=== PATIENT | female | born 1995 | race Hispanic/Latino ===

== ENCOUNTER 2021-01-17 10:32 | Emergency (ER) | payer BC ==
[2021-01-17 11:36] LABS: Urine Blood 3+ (Negative); Urine Glucose Negative (Negative); Urine Protein 2+ (Negative); Urine Specific Gravity 1.015 (1.005-1.030); Urine pH >=9.0 (5.0-7.0)
[2021-01-17 11:37] LABS: Absolute Lymphocytes (CBC) 1.6 K/uL (0.7-4.9); Basophils % 0.4 % (0-1.3); Hematocrit 45.1 % (36.0-45.0); Lymphocytes % 19.3 % (15.3-44.8); RBC Red Blood Cell Count 5.12 M/uL (3.86-4.86)
[2021-01-17 11:52] LABS: BUN Blood Urea Nitrogen 9 mg/dL (7-18); Bicarbonate 25 mmol/L (21-32); Glucose Level 93 mg/dL (74-106); Potassium 4.2 mmol/L (3.5-5.1); Sodium Level 139 mmol/L (136-145)
[2021-01-17] MEDS ORDERED: ONDANSETRON 4 MG/2 ML VIAL ONE (12:19)
[2021-01-17] MEDS ORDERED: MORPHINE 2 MG/ML SYR ONE (12:19)
--- NOTE | 2021-01-17 12:34 | RAD REPORT ---
EXAM DESCRIPTION: CT - Abdomen Pelvis W Contrast - 01/17/2021 12:19 pm CLINICAL HISTORY: Abdominal pain COMPARISON: none. TECHNIQUE: Computed axial tomography of the abdomen pelvis was obtained. 100 cc Isovue-300 was admin istered intravenously. Oral contrast was not requested which limits evaluation of bowel. All CT scans are performed using dose optimization technique as appropriate and may include automated exposure control or mA/KV adjustment according to patient size. FINDINGS: The liver, spleen, pancreas, adrenal and kidneys appear unremarkable. There is no evidence of diverticulitis. Normal appendix. Small umbilical hernia 2 centimeter irregularly-shaped left ovarian cyst Small amount of ill-defined fluid surrounds uterus. Endometrial stripe 11 millimeters IMPRESSION: 2 centimeter irregularly-shaped left ovarian cyst probably has recently ruptured . Small amount of ill-defined fluid surrounds the uterus. The patient is status post section a pproximately 5 weeks ago. No abscess visualized
[2021-01-17 13:32] LABS: Urine Specific Gravity/Preg 1.015 (1.005-1.030)
--- NOTE | 2021-01-17 13:36 | ER ---
Nurse's Notes [facility] Name: Raquel Claros Age: 25 yrs Sex: Female : 1995 Arrival Date: 01/17/2021 Time: 10:34 Bed 26 Private MD: Diagnosis: Other abnormal uterine and vaginal bleeding;Other ovarian cysts Presentation: 01/17 10:46 Chief complaint: Patient states: "I had a C section on December 13 and today I am bleeding jd3 a lot.". Coronavirus screen: At this time, the client does not indicate any symptoms associated with coronavirus-19. Ebola Screen: Patient negative for fever greater than or equal to 101.5 degrees Fahrenheit, and additional compatible Ebola Virus Disease symptoms. Initial Sepsis Screen: Does the patient meet any 2 criteria? No. Patient's initial sepsis screen is negative. Does the patient have a suspected source of infection? No. Patient's initial sepsis screen is negative. Risk Assessment: Do you want to hurt yourself or someone else? Patient reports no desire to harm self or others. Onset of symptoms was January 16, 2021. 10:46 Method Of Arrival: Wheelchair jd3 10:46 Acuity: SHAYLA 3 jd3 CARD PUNCHER: 10:48 LMP N/A - Recent jd3 11:40 2, Full Term 2, Living 2 pm1 Historical: - Allergies: 10:48 No Known Allergies; jd3 - Home Meds: 10:48 None [Active]; jd3 - PMHx: 10:48 None; jd3 - PSHx: 10:48 ; jd3 - Immunization history:: Adult Immunizations up to date. - Social history:: Smoking status: Patient denies any tobacco usage or history of. Screenin:04 Abuse screen: Denies threats or abuse. Denies injuries from another. Nutritional ca1 screening: No deficits noted. Tuberculosis screening: No symptoms or risk factors identified. Fall Risk IV access (20 points). Assessment: 11:04 General: Appears in no apparent distress. comfortable, Behavior is calm, cooperative, ca1 appropriate for age. Pain: Complains of pain in right lower quadrant and left lower quadrant Pain does not radiate. Pain currently is 6 out of 10 on a pain scale. Quality of pain is described as crampy, Is intermittent. Neuro: Level of Consciousness is awake, alert, obeys commands, Oriented to person, place, time, situation. Cardiovascular: Heart tones S1 S2 present Capillary refill < 3 seconds Patient's skin is warm and dry. Respiratory: Airway is patent Respiratory effort is even, unlabored, Respiratory pattern is regular, symmetrical, Breath sounds are clear bilaterally. GI: Abdomen is round non-distended, Bowel sounds present X 4 quads. Abd is soft X 4 quads Abdomen is tender to palpation in right lower quadrant and left lower quadrant. : Genitalia appear normal Reports vaginal bleeding that is bright red, with clots, heavy flow since this morning. EENT: No signs and/or symptoms were reported regarding the EENT system. Derm: Skin is intact, is healthy with good turgor, Skin is pink, warm \\T\\ dry. incision, dry, intact. Musculoskeletal: Circulation, motion, and sensation intact. Capillary refill < 3 seconds. 12:00 Reassessment: Patient appears in no apparent distress at this time. Patient and/or ca1 family updated on plan of care and expected duration. Pain level reassessed. Patient is alert, oriented x 3, equal unlabored respirations, skin warm/dry/pink. 12:59 Reassessment: Patient appears in no apparent distress at this time. Patient and/or ca1 family updated on plan of care and expected duration. Pain level reassessed. Patient is alert, oriented x 3, equal unlabored respirations, skin warm/dry/pink. 14:00 Reassessment: Patient appears in no apparent distress at this time. Patient and/or ca1 family updated on plan of care and expected duration. Pain level reassessed. Patient is alert, oriented x 3, equal unlabored respirations, skin warm/dry/pink. Vital Signs: 10:48 BP 117 / 77; Pulse 89; Resp 16 S; Temp 97.7(TE); Pulse Ox 99% on R/A; Weight 99.79 kg jd3 (R); Height 5 ft. 6 in. (167.64 cm) (R); Pain 5/10; 11:36 BP 113 / 94; Pulse 75; Resp 16 S; Pulse Ox 100% on R/A; ca1 12:59 BP 140 / 69; Pulse 81; Resp 16 S; Pulse Ox 100% on R/A; ca1 14:00 BP 112 / 74; Pulse 74; Resp 16 S; Pulse Ox 100% on R/A; ca1 10:48 Body Mass Index 35.51 (99.79 kg, 167.64 cm) jd3 ED Course: 10:34 Patient arrived in ED. am2 10:47 Triage completed. jd3 10:49 Arm band placed on. jd3 10:54 Gricel Crow RN is Primary Nurse. ca1 11:04 Patient has correct armband on for positive identification. Placed in gown. Bed in low ca1 position. Call light in reach. Side rails up X 1. Pulse ox on. NIBP on. Warm blanket given. 11:14 Yayo Medina NP is PHCP. pm1 11:14 Partha Frost MD is Attending Physician. pm1 11:30 Initial lab(s) drawn, by me, sent to lab. Inserted saline lock: 20 gauge in right ca1 antecubital area, using aseptic technique. Blood collected. 12:19 CT Abd/Pelvis - IV Contrast Only In Process Unspecified. EDMS 14:09 No provider procedures requiring assistance completed. IV discontinued, intact, ca1 bleeding controlled, No redness/swelling at site. Pressure dressing applied. Administered Medications: 12:04 Drug: Zofran (Ondansetron) 4 mg Route: IVP; Site: right antecubital; ca1 12:45 Follow up: Response: No adverse reaction; Nausea is decreased ca1 12:06 Drug: morphine 2 mg {Note: rass 0.} Route: IVP; Site: right antecubital; ca1 12:45 Follow up: Response: No adverse reaction; Pain is decreased; RASS: Alert and Calm (0) ca1 Outcome: 13:36 Discharge ordered by . pm1 14:09 Discharged to home ambulatory, with significant other. ca1 14:09 Condition: stable 14:09 Discharge instructions given to patient, Instructed on discharge instructions, follow up and referral plans. no drinking with medication, no driving heavy equipment, medication usage, Demonstrated understanding of instructions, follow-up care, medications, Prescriptions given X 1. 14:10 Patient left the ED. ca1 Signatures: Dispatcher [employer] EDMS Yayo Medina, [employer] pm1 Isabelle Hook am2 Jaun Sheehan RN RN jd3 Gricel Crow RN RN ca1 Corrections: (The following items were deleted from the chart) 11:06 11:04 Derm: Skin is intact, is healthy with good turgor, Skin is pink, warm \\T\\ dry. ca1 ca1
--- NOTE | 2021-01-17 13:37 | EDPHYS ---
Physician Documentation [facility] Name: Raquel Claros Age: 25 yrs Sex: Female : 1995 Arrival Date: 01/17/2021 Time: 10:34 Bed 26 Private MD: ED Physician Partha Frost HPI: 01/17 11:40 This 25 yrs old Female presents to ER via Wheelchair with complaints of pm1 Vaginal Bleeding. 11:40 The patient presents with vaginal bleeding that is started like menstrual cycle 2 days pm1 ago then heavy with clots today. Onset: The symptoms/episode began/occurred 2 day(s) ago. Modifying factors: The symptoms are alleviated by nothing, the symptoms are aggravated by nothing. Associated signs and symptoms: Pertinent negatives: diarrhea, dysuria, fever, nausea, vomiting. Severity of symptoms: in the emergency department the symptoms are actually worse. The patient is. The patient has not experienced similar symptoms in the past. The patient has not recently seen a physician, has an appointment scheduled, for 6 weeks follow up. FUR BLOWER: 10:48 LMP N/A - Recent jd3 11:40 2, Full Term 2, Living 2 pm1 Historical: - Allergies: 10:48 No Known Allergies; jd3 - Home Meds: 10:48 None [Active]; jd3 - PMHx: 10:48 None; jd3 - PSHx: 10:48 ; jd3 - Immunization history:: Adult Immunizations up to date. - Social history:: Smoking status: Patient denies any tobacco usage or history of. ROS: 11:40 Positive for vaginal bleeding, Negative for urinary symptoms. pm1 11:40 Constitutional: Negative for fever, chills, and weight loss. 11:40 Cardiovascular: Negative for chest pain, palpitations, and edema, Respiratory: Negative for shortness of breath, cough, wheezing, and pleuritic chest pain, Back: Negative for injury and pain, MS/Extremity: Negative for injury and deformity, Skin: Negative for injury, rash, and discoloration, Neuro: Negative for headache, weakness, numbness, tingling, and seizure. 11:40 Abdomen/GI: Positive for abdominal cramps, of the suprapubic area, Negative for abdominal pain, nausea, vomiting, and diarrhea. 11:40 All other systems are negative. Exam: 11:40 Constitutional: This is a well developed, well nourished patient who is awake, alert, pm1 and in no acute distress. Head/Face: Normocephalic, atraumatic. 11:40 Back: No spinal tenderness. No costovertebral tenderness. Full range of motion. Skin: Warm, dry with normal turgor. Normal color with no rashes, no lesions, and no evidence of cellulitis. MS/ Extremity: Pulses equal, no cyanosis. Neurovascular intact. Full, normal range of motion. 11:40 Eyes: Exam is negative for acute changes, Extraocular movements: intact throughout, Conjunctiva: normal, no acute changes, Sclera: icterus, is not appreciated. 11:40 Cardiovascular: Rate: normal, Rhythm: regular, Pulses: no pulse deficits are appreciated, Heart sounds: normal, normal S1and S2, Edema: is not appreciated. 11:40 Respiratory: the patient does not display signs of respiratory distress, Respirations: normal, Breath sounds: are clear throughout. 11:40 Abdomen/GI: Inspection: abdomen appears normal, Palpation: soft, in all quadrants, mild abdominal tenderness, in the suprapubic area. 11:40 Neuro: Exam negative for acute changes, Orientation: is normal, Mentation: is normal, Motor: is normal, moves all fours. Vital Signs: 10:48 BP 117 / 77; Pulse 89; Resp 16 S; Temp 97.7(TE); Pulse Ox 99% on R/A; Weight 99.79 kg jd3 (R); Height 5 ft. 6 in. (167.64 cm) (R); Pain 5/10; 11:36 BP 113 / 94; Pulse 75; Resp 16 S; Pulse Ox 100% on R/A; ca1 12:59 BP 140 / 69; Pulse 81; Resp 16 S; Pulse Ox 100% on R/A; ca1 14:00 BP 112 / 74; Pulse 74; Resp 16 S; Pulse Ox 100% on R/A; ca1 10:48 Body Mass Index 35.51 (99.79 kg, 167.64 cm) jd3 MDM: 11:38 Patient medically screened. pm1 13:35 Data reviewed: vital signs. Data interpreted: Pulse oximetry: on room air is 100 %. pm1 Interpretation: normal. Counseling: I had a detailed discussion with the patient and/or guardian regarding: the historical points, exam findings, and any diagnostic results supporting the discharge/admit diagnosis, lab results, radiology results, the need for outpatient follow up, an OB/Gyne specialist, to return to the emergency department if symptoms worsen or persist or if there are any questions or concerns that arise at home. 01/17 11:18 Order name: Basic Metabolic Panel; Complete Time: 12:21 pm1 01/17 11:18 Order name: CBC with Diff; Complete Time: 11:43 pm1 01/17 11:36 Order name: Urine Dipstick-Ancillary; Complete Time: 11:43 EDMS 01/17 11:36 Order name: Urine --Ancillary (enter results); Complete Time: 13:33 bd 01/17 11:39 Order name: CT Abd/Pelvis - IV Contrast Only; Complete Time: 12:41 pm1 01/17 11:18 Order name: Urine Test (obtain specimen); Complete Time: 11:30 pm1 01/17 11:18 Order name: IV Saline Lock; Complete Time: 11:30 pm1 01/17 11:18 Order name: Labs collected and sent; Complete Time: 11:30 pm1 01/17 11:18 Order name: NPO; Complete Time: 11:18 pm1 01/17 11:18 Order name: Urine Dipstick-Ancillary (obtain specimen); Complete Time: 11:30 pm1 Administered Medications: 12:04 Drug: Zofran (Ondansetron) 4 mg Route: IVP; Site: right antecubital; ca1 12:45 Follow up: Response: No adverse reaction; Nausea is decreased ca1 12:06 Drug: morphine 2 mg {Note: rass 0.} Route: IVP; Site: right antecubital; ca1 12:45 Follow up: Response: No adverse reaction; Pain is decreased; RASS: Alert and Calm (0) ca1 Disposition: 01/18 07:01 Co-signature as Attending Physician, Partha Frost MD. rn 07:02 Co-signature as Attending Physician, Partha Frost MD. rn Disposition: 01/17/21 13:36 Discharged to Home. Impression: Other abnormal uterine and vaginal bleeding, Other ovarian cysts. - Condition is Stable. - Discharge Instructions: Abnormal Uterine Bleeding, Ovarian Cyst. - Prescriptions for Tylenol- Codeine #3 300-30 mg Oral Tablet - take 2 tablets by ORAL route every 6 hours As needed; 20 tablet. - Medication Reconciliation Form, Thank You Letter, Antibiotic Education, Prescription Opioid Use form. - Follow up: Emergency Department; When: As needed; Reason: Worsening of condition. Follow up: Private Physician; When: 2 - 3 days; Reason: Recheck today's complaints, Continuance of care, Re-evaluation by your physician. - Problem is new. - Symptoms have improved. Signatures: Dispatcher [employer] EDMS Partha Frost MD MD rn Yayo Mednia, COMPOSITE MECH[employer]IC COMPOSITE MECHANIC pm1 Jaun Sheehan, RN RN jd3 Gricel Crow RN RN ca1 Corrections: (The following items were deleted from the chart) 01/17 13:38 13:36 01/17/2021 13:36 Discharged to Home. Impression: Other abnormal uterine and pm1 vaginal bleeding. Condition is Stable. Forms are Medication Reconciliation Form, Thank You Letter, Antibiotic Education, Prescription Opioid Use. Follow up: Emergency Department; When: As needed; Reason: Worsening of condition. Follow up: Private Physician; When: 2 - 3 days; Reason: Recheck today's complaints, Continuance of care, Re-evaluation by your physician. Problem is new. Symptoms have improved. pm1 13:52 13:38 01/17/2021 13:36 Discharged to Home. Impression: Other abnormal uterine and pm1 vaginal bleeding. Condition is Stable. Forms are Medication Reconciliation Form, Thank You Letter, Antibiotic Education, Prescription Opioid Use. Follow up: Emergency Department; When: As needed; Reason: Worsening of condition. Follow up: Private Physician; When: 2 - 3 days; Reason: Recheck today's complaints, Continuance of care, Re-evaluation by your physician. Problem is new. Symptoms have improved. pm1 14:10 13:52 01/17/2021 13:36 Discharged to Home. Impression: Other abnormal uterine and ca1 vaginal bleeding; Other ovarian cysts. Condition is Stable. Discharge Instructions: Abnormal Uterine Bleeding, Ovarian Cyst. Forms are Medication Reconciliation Form, Thank You Letter, Antibiotic Education, Prescription Opioid Use. Follow up: Emergency Department; When: As needed; Reason: Worsening of condition. Follow up: Private Physician; When: 2 - 3 days; Reason: Recheck today's complaints, Continuance of care, Re-evaluation by your physician. Problem is new. Symptoms have improved. pm1
[2021-01-17 14:14] VITALS: TEMP 97.7
[2021-01-17 14:15] VITALS: O2SAT 100
[2021-01-17 14:19] VITALS: BP 112/74
== END 2021-01-17 14:10 | disposition home or self-care (01) ==
LOC: ER 10:32
DX: N93.8 Other specified abnormal uterine and vaginal bleeding (principal); N83.202 Unspecified ovarian cyst, left side
CPT/HCPCS: 85025; 80048; 36415; 81025; 81003; 74177; Q9967; J2270; J2405; 96374; 96375; 99284